=== PATIENT | male | born 1970 ===

== ENCOUNTER 2020-03-22 18:20 | Emergency (ER) | payer OTHER ==
[~2020-03-22] VITALS: Ht 177.8 cm; Wt 88.7 kg
[2020-03-22 18:37] VITALS: BP 147/94
[2020-03-22] MEDS ORDERED: LIDOCAINE-MPF 1%, 5ML INFIL ONE (19:30)
[2020-03-22] MEDS ORDERED: LIDOCAINE-MPF 1%, 5ML ONE (19:33)
[2020-03-22] MEDS ORDERED: NEOSPORIN OINT. PKT 1 PACKET ONE ×2 (20:32→20:36)
== END 2020-03-22 21:10 | disposition home or self-care (01) ==
LOC: ED 20:45
DX: S61.211A Laceration without foreign body of left index finger without damage to nail, initial encounter (principal); G89.11 Acute pain due to trauma; W26.0XXA Contact with knife, initial encounter; Y93.89 Activity, other specified; Y92.098 Other place in other non-institutional residence as the place of occurrence of the external cause; Y99.8 Other external cause status
CPT/HCPCS: 12041; 99284